=== PATIENT | female | born 1960 | race Caucasian/White ===

== ENCOUNTER → 2017-06-19 07:29 | Outpatient (CLI) | payer OTHER | END | disposition home or self-care (01) | LOC: LAB 07:29 | DX: D68.61 Antiphospholipid syndrome (principal); D68.62 Lupus anticoagulant syndrome; E72.12 Methylenetetrahydrofolate reductase deficiency; E72.11 Homocystinuria; Z79.01 Long term (current) use of anticoagulants; R73.01 Impaired fasting glucose; E83.52 Hypercalcemia; N20.0 Calculus of kidney; D50.8 Other iron deficiency anemias; D51.8 Other vitamin B12 deficiency anemias; I10 Essential (primary) hypertension; K90.89 Other intestinal malabsorption; E55.9 Vitamin D deficiency, unspecified ==

== ENCOUNTER → 2017-06-21 16:31 | Outpatient (CLI) | payer OTHER | END | disposition home or self-care (01) | LOC: RAD 16:31 → LAB 16:31 | DX: J32.8 Other chronic sinusitis (principal); D68.61 Antiphospholipid syndrome; D68.62 Lupus anticoagulant syndrome; E72.12 Methylenetetrahydrofolate reductase deficiency; E72.11 Homocystinuria; Z79.01 Long term (current) use of anticoagulants; R73.01 Impaired fasting glucose; E83.52 Hypercalcemia; N20.0 Calculus of kidney ==

== ENCOUNTER 2018-10-25 07:19 | Outpatient (CLI) | payer OTHER | END 2018-10-25 07:36 | disposition home or self-care (01) | LOC: LAB 07:19 | DX: D68.61 Antiphospholipid syndrome (principal); D68.62 Lupus anticoagulant syndrome; E72.12 Methylenetetrahydrofolate reductase deficiency; Z79.01 Long term (current) use of anticoagulants; R73.01 Impaired fasting glucose; E83.52 Hypercalcemia; N20.0 Calculus of kidney; J01.11 Acute recurrent frontal sinusitis; J32.8 Other chronic sinusitis; D50.8 Other iron deficiency anemias; D51.8 Other vitamin B12 deficiency anemias; I10 Essential (primary) hypertension; K90.89 Other intestinal malabsorption ==

== ENCOUNTER 2024-02-26 07:16 | Outpatient (CLI) | payer OTHER ==
[2024-02-26 09:34] LABS: HEMOGLOBIN 13.1 g/dL (12.0-15.00); MEAN CORPUSCULAR HEMOGLOBIN 28.3 pg (27.00-32.0); MEAN CORPUSCULAR HGB CONC 33.7 g/dl (32.0-36.0); PLATELET COUNT 236 K/uL (150-450); RED BLOOD COUNT 4.64 M/uL (4.00-6.00); RED CELL DISTRIBUTION WIDTH 14.4 % (11.5-14.5)
[2024-02-26 10:39] LABS: ALBUMIN 4.2 gm/dL (3.4-5.0); BILIRUBIN TOTAL 0.47 mg/dL (0.3-1.2); CALCIUM 9.2 mg/dL (8.5-10.1); CREATININE SERUM 0.68 mg/dL (0.55-1.02); GFR 87.11; GLOBULINA 3.3 G/DL (2.4-3.5); POTASSIUM 4.32 mEq/L (3.5-5.1); TOTAL PROTEIN 7.5 gm/dL (6.4-8.2)
[2024-02-28 09:44] LABS: FOLIC ACID 16.2 ng/ml (4.78-20); VITAMIN D3 25 HYDROXY 112.5 ng/ml (30-120)
== END 2024-02-26 07:22 | disposition home or self-care (01) ==
LOC: LAB 07:16
PROVIDERS: ATTEND Internal Medicine Hematology & Oncology
DX: D68.61 Antiphospholipid syndrome (principal); E72.12 Methylenetetrahydrofolate reductase deficiency; Z79.01 Long term (current) use of anticoagulants; R73.01 Impaired fasting glucose; E83.52 Hypercalcemia; N20.0 Calculus of kidney; J01.11 Acute recurrent frontal sinusitis; J32.8 Other chronic sinusitis; D50.8 Other iron deficiency anemias; I10 Essential (primary) hypertension; R74.02 Elevation of levels of lactic acid dehydrogenase [LDH]; K76.89 Other specified diseases of liver; E11.9 Type 2 diabetes mellitus without complications; D51.8 Other vitamin B12 deficiency anemias